=== PATIENT | female | born 1940 | race African-American/Black ===

== ENCOUNTER 2019-05-01 18:09 | Inpatient (IN) | payer MEDICARE, MEDICAID ==
[~2019-05-01] VITALS: Ht 167.6 cm; Wt 54.9 kg
[2019-05-01] MEDS ORDERED: SODIUM CHLORIDE 0.9% 1,000 ML IV ONE (19:01)
[2019-05-01 19:40] LABS: BASOPHILS % 0.2 % (0.0-2.0); EOSINOPHILS % 0.1 % (0.0-5.0); LYMPHOCYTES % 14.8 % (20.0-50.0); MEAN CORPUSCULAR HEMOGLOBIN 36.3 pg (28.0-32.0); MEAN CORPUSCULAR VOLUME 112.7 fL (81.0-99.0); MEAN PLATELET VOLUME 9.1 fl (7.4-10.4); MONOCYTES % 3.6 % (2.0-8.0); NEUTROPHILS % 81.3 % (40.0-76.0); PLATELET 101 x1000/uL (130-400); RED BLOOD CELL COUNT 2.75 mill/uL (4.2-5.4); RED CELL DISTRIBUTION WIDTH 18.2 % (11.6-14.6)
[2019-05-01 19:45] LABS: CHLORIDE 104 mEq/L (98-107)
[2019-05-01] MEDS ORDERED: IPRATROPIUM BROMIDE (0.02%) 0.5MG/2.5ML NEB HHN STA (19:54)
[2019-05-01] MEDS ORDERED: METHYLPREDNISOLONE SOD SUCC 125 MG/2 ML VIAL IV STA (19:54)
[2019-05-01] MEDS: ALBUTEROL (0.083%) 2.5MG/3ML NEB HHN SCH ×3 (20:02→21:11)
[2019-05-01] MEDS ORDERED: HALOPERIDOL LACTATE 5MG/ML VIAL IM ONE (20:15)
[2019-05-01] MEDS ORDERED: LORAZEPAM 2MG/ML CPJ IM ONE (21:15)
[2019-05-01 21:31] LABS: PLATELET ESTIMATE SLIGHTLY DECREASED
[2019-05-01] MEDS ORDERED: ALBUTEROL (0.083%) 2.5MG/3ML NEB HHN ONE (22:00)
[2019-05-01] MEDS ORDERED: ONDANSETRON HCL 4MG/2ML INJ IV PRN (23:45)
[2019-05-01] MEDS ORDERED: ACETAMINOPHEN 325MG TABLET PO PRN (23:45)
[2019-05-01] MEDS ORDERED: CLONIDINE 0.1MG TABLET PO PRN (23:45)
[2019-05-01] MEDS ORDERED: LORAZEPAM 2MG/ML CPJ IV PRN (23:45)
[2019-05-01 23:59] LABS: BG BASE EXCESS -7.2 mmol/L (-2.0-2.0); BG CARBOXYHEMOGLOBIN 0.3 % (0.5-1.5); BG DEOXYHEMOGLOBIN 5.5 % (0.0-5.0); BG FRACTION INSPIRED OXYGEN 36; BG HCO3 ACT 17.6 mmol/L (22.0-26.0); BG METHEMOGLOBIN 0.1 % (0.0-1.5); BG OXYGEN SATURATION 94.5 % (92.0-98.5); BG OXYHEMOGLOBIN 94.1 % (94.0-97.0); BG PCO2 32.6 mmHg (35.0-45.0); BG PH 7.349 (7.350-7.450); BG SAMPLE SITE RIGHT RADIAL; BG TOTAL HEMOGLOBIN 10.3 g/dL (12.0-18.0); BG VENT MODE NASAL CANNULA
[2019-05-02] VITALS (12 sets, daily range): BP systolic 93–134; BP diastolic 25–97
[2019-05-02] MEDS ORDERED: DEXT 5%/0.9% NACL 1,000 ML IV SCH
[2019-05-02] MEDS ORDERED: CLONIDINE 0.1MG TABLET PO PRN (02:00)
[2019-05-02] MEDS ORDERED: DEXTROSE 50% WATER 50ML SYRINGE IV PRN (02:00)
[2019-05-02] MEDS ORDERED: IPRATROPIUM/ALBUTEROL 0.5-3(2.5)MG/3ML NEB HHN PRN (02:00)
[2019-05-02] MEDS ORDERED: MAGNESIUM/ALUMINUM HYDROXIDE/SIMETHICONE 30ML UDC PO PRN (02:00)
[2019-05-02] MEDS: IPRATROPIUM/ALBUTEROL 0.5-3(2.5)MG/3ML NEB HHN SCH ×4 (02:12→21:18)
[2019-05-02] MEDS: SODIUM CHLORIDE 0.9% INJ 3ML FLUSH IVF SCH ×3 (05:35→21:28)
[2019-05-02] MEDS: BLOOD SUGAR DIAGNOSTIC STRIP TEST SCH ×4 (07:30→21:15)
[2019-05-02] MEDS: INSULIN LISPRO 100 UNITS/ML SUBCUT SCH ×4 (08:00→21:00)
[2019-05-02] MEDS: CARVEDILOL 12.5MG TABLET PO SCH ×2 (08:19→21:15)
[2019-05-02] MEDS ORDERED: FUROSEMIDE 40MG/4ML VIAL IVP SCH (09:00)
[2019-05-02] MEDS: BUDESONIDE 0.5MG/2ML NEB HHN SCH ×2 (09:23→21:00)
[2019-05-02] MEDS ORDERED: LORAZEPAM 0.5MG TABLET PO PRN (12:45)
[2019-05-02] MEDS ORDERED: PREDNISONE 20MG TABLET PO SCH (14:15)
[2019-05-02] MEDS: ATORVASTATIN CALCIUM 20MG TABLET PO SCH (21:13)
[2019-05-02] MEDS: LORAZEPAM 1MG TABLET PO PRN (21:13)
[2019-05-03] VITALS (12 sets, daily range): BP systolic 117–148; BP diastolic 53–102
[2019-05-03 01:18] LABS: *BARBITURATES SCREEN URINE NEGATIVE (NEGATIVE); *BENZODIAZEPINES SCREEN URINE NEGATIVE (NEGATIVE)
[2019-05-03 01:19] LABS: *COCAINE SCREEN URINE NEGATIVE (NEGATIVE); CANNABINOID URINE SCREEN NEGATIVE (NEGATIVE); METHADONE URINE SCREEN NEGATIVE (NEGATIVE); OPIATES URINE SCREEN NEGATIVE (NEGATIVE); PHENCYCLIDINE URINE SCREEN NEGATIVE (NEGATIVE)
[2019-05-03 01:20] LABS: *AMPHETAMINES SCREEN URINE NEGATIVE (NEGATIVE)
[2019-05-03] MEDS: IPRATROPIUM/ALBUTEROL 0.5-3(2.5)MG/3ML NEB HHN SCH ×4 (02:20→21:00)
[2019-05-03] MEDS: LORAZEPAM 1MG TABLET PO PRN ×3 (04:01→21:26)
[2019-05-03] MEDS: SODIUM CHLORIDE 0.9% INJ 3ML FLUSH IVF SCH ×3 (06:00→21:27)
[2019-05-03] MEDS: BLOOD SUGAR DIAGNOSTIC STRIP TEST SCH ×4 (07:57→21:00)
[2019-05-03] MEDS: INSULIN LISPRO 100 UNITS/ML SUBCUT SCH ×4 (07:57→21:00)
[2019-05-03] MEDS: CARVEDILOL 12.5MG TABLET PO SCH ×2 (08:04→21:26)
[2019-05-03] MEDS: FUROSEMIDE 40MG TABLET PO SCH (08:04)
[2019-05-03] MEDS: HALOPERIDOL 5MG TABLET PO PRN (08:04)
[2019-05-03] MEDS: BUDESONIDE 0.5MG/2ML NEB HHN SCH ×2 (08:09→21:17)
[2019-05-03 17:16] LABS: BG CARBOXYHEMOGLOBIN 0.4 % (0.5-1.5); BG DEOXYHEMOGLOBIN 4.6 % (0.0-5.0); BG FRACTION INSPIRED OXYGEN 28; BG HCO3 ACT 24.2 mmol/L (22.0-26.0); BG METHEMOGLOBIN 0.3 % (0.0-1.5); BG OXYGEN SATURATION 95.4 % (92.0-98.5); BG OXYHEMOGLOBIN 94.7 % (94.0-97.0); BG PCO2 37.6 mmHg (35.0-45.0); BG PH 7.427 (7.350-7.450); BG PO2 81.9 mmHg (75.0-100.0); BG SAMPLE SITE RIGHT BRACHIAL; BG TOTAL HEMOGLOBIN 9.8 g/dL (12.0-18.0); BG VENT MODE NASAL CANNULA
[2019-05-03] MEDS ORDERED: LORAZEPAM 2MG/ML CPJ IV PRN (17:30)
[2019-05-03] MEDS: DEXT 5%/0.9% NACL 1,000 ML IV SCH (17:50)
[2019-05-03] MEDS: ATORVASTATIN CALCIUM 20MG TABLET PO SCH (21:26)
[2019-05-04] VITALS (12 sets, daily range): BP systolic 99–143; BP diastolic 51–95
[2019-05-04] MEDS: IPRATROPIUM/ALBUTEROL 0.5-3(2.5)MG/3ML NEB HHN SCH ×5 (00:35→21:25)
[2019-05-04] MEDS: LORAZEPAM 2MG/ML CPJ IM PRN ×2 (04:17→17:21)
[2019-05-04] MEDS: SODIUM CHLORIDE 0.9% INJ 3ML FLUSH IVF SCH ×3 (06:00→22:00)
[2019-05-04 06:05] LABS: PHOSPHORUS 3.8 mg/dL (2.5-4.9)
[2019-05-04 06:12] LABS: HEMOGLOBIN. 10.5 g/dL (12.0-16.0); MEAN CORPUSCULAR HEMOGLOBIN 36.4 pg (28.0-32.0); MEAN CORPUSCULAR VOLUME 114.1 fL (81.0-99.0); MEAN PLATELET VOLUME 9.9 fl (7.4-10.4); PLATELET 65 x1000/uL (130-400); RED BLOOD CELL COUNT 2.89 mill/uL (4.2-5.4); RED CELL DISTRIBUTION WIDTH 18.2 % (11.6-14.6)
[2019-05-04] MEDS: INSULIN LISPRO 100 UNITS/ML SUBCUT SCH ×4 (07:43→21:00)
[2019-05-04] MEDS: BLOOD SUGAR DIAGNOSTIC STRIP TEST SCH ×4 (07:43→21:00)
[2019-05-04] MEDS: BUDESONIDE 0.5MG/2ML NEB HHN SCH (08:10)
[2019-05-04] MEDS: CARVEDILOL 12.5MG TABLET PO SCH ×2 (08:20→22:02)
[2019-05-04] MEDS: FUROSEMIDE 40MG TABLET PO SCH (08:20)
[2019-05-04] MEDS: HALOPERIDOL 5MG TABLET PO PRN (08:20)
[2019-05-04] MEDS: OLANZAPINE 5MG TABLET PO SCH (08:20)
[2019-05-04] MEDS ORDERED: PREDNISONE 20MG TABLET PO SCH (09:00)
[2019-05-04 12:53] LABS: PLATELET ESTIMATE DECREASED
[2019-05-04] MEDS: DEXT 5%/0.9% NACL 1,000 ML IV SCH (13:23)
[2019-05-04 17:02] LABS: BG BASE EXCESS -0.9 mmol/L (-2.0-2.0); BG CARBOXYHEMOGLOBIN 0.5 % (0.5-1.5); BG FRACTION INSPIRED OXYGEN 21; BG HCO3 ACT 22.9 mmol/L (22.0-26.0); BG METHEMOGLOBIN 0.3 % (0.0-1.5); BG OXYGEN SATURATION 88.9 % (92.0-98.5); BG OXYHEMOGLOBIN 88.2 % (94.0-97.0); BG PH 7.434 (7.350-7.450); BG PO2 58.3 mmHg (75.0-100.0); BG SAMPLE SITE RIGHT BRACHIAL; BG TOTAL HEMOGLOBIN 10.9 g/dL (12.0-18.0); BG VENT MODE ROOM AIR
[2019-05-04] MEDS: ATORVASTATIN CALCIUM 20MG TABLET PO SCH (21:59)
[2019-05-04] MEDS: LORAZEPAM 1MG TABLET PO PRN (23:07)
[2019-05-05] VITALS (16 sets, daily range): BP systolic 90–134; BP diastolic 71–90
[2019-05-05] MEDS: LORAZEPAM 2MG/ML CPJ IM PRN (01:03)
[2019-05-05] MEDS: IPRATROPIUM/ALBUTEROL 0.5-3(2.5)MG/3ML NEB HHN SCH ×4 (01:50→20:42)
[2019-05-05] MEDS: ACETAMINOPHEN 325MG TABLET PO PRN (05:01)
[2019-05-05] MEDS: SODIUM CHLORIDE 0.9% INJ 3ML FLUSH IVF SCH ×3 (06:00→21:20)
[2019-05-05] MEDS: BLOOD SUGAR DIAGNOSTIC STRIP TEST SCH ×3 (07:30→21:19)
[2019-05-05] MEDS: INSULIN LISPRO 100 UNITS/ML SUBCUT SCH ×3 (08:00→21:00)
[2019-05-05] MEDS: FUROSEMIDE 40MG TABLET PO SCH ×3 (09:00→16:37)
[2019-05-05] MEDS: OLANZAPINE 5MG TABLET PO SCH ×3 (09:00→16:36)
[2019-05-05] MEDS: PREDNISONE 20MG TABLET NG SCH ×3 (09:00→16:36)
[2019-05-05] MEDS: CARVEDILOL 12.5MG TABLET PO SCH ×3 (09:00→21:00)
[2019-05-05] MEDS: DEXT 5%/0.9% NACL 1,000 ML IV SCH (09:30)
[2019-05-05] MEDS: BUDESONIDE 0.5MG/2ML NEB HHN SCH (20:43)
[2019-05-05] MEDS: ATORVASTATIN CALCIUM 20MG TABLET PO SCH (21:19)
[2019-05-06] VITALS (15 sets, daily range): BP systolic 113–134; BP diastolic 54–96
[2019-05-06] MEDS: IPRATROPIUM/ALBUTEROL 0.5-3(2.5)MG/3ML NEB HHN SCH ×4 (02:15→20:10)
[2019-05-06] MEDS: DEXT 5%/0.9% NACL 1,000 ML IV SCH (05:01)
[2019-05-06] MEDS: SODIUM CHLORIDE 0.9% INJ 3ML FLUSH IVF SCH ×3 (05:02→21:48)
[2019-05-06 07:05] LABS: HEMATOCRIT. 31.6 % (36.0-48.0); HEMOGLOBIN. 10.3 g/dL (12.0-16.0); MEAN CORPUSCULAR VOLUME 110.9 fL (81.0-99.0); MEAN PLATELET VOLUME 9.2 fl (7.4-10.4); PLATELET 66 x1000/uL (130-400); RED BLOOD CELL COUNT 2.85 mill/uL (4.2-5.4); RED CELL DISTRIBUTION WIDTH 17.9 % (11.6-14.6)
[2019-05-06 07:19] LABS: CHLORIDE 109 mEq/L (98-107)
[2019-05-06 07:30] LABS: PHOSPHORUS 3.2 mg/dL (2.5-4.9)
[2019-05-06] MEDS: INSULIN LISPRO 100 UNITS/ML SUBCUT SCH ×4 (08:00→21:00)
[2019-05-06] MEDS: BUDESONIDE 0.5MG/2ML NEB HHN SCH ×2 (08:24→20:10)
[2019-05-06] MEDS: OLANZAPINE 5MG TABLET PO SCH (08:25)
[2019-05-06] MEDS: FUROSEMIDE 40MG TABLET PO SCH (08:25)
[2019-05-06] MEDS: PREDNISONE 20MG TABLET NG SCH (08:26)
[2019-05-06] MEDS: CARVEDILOL 12.5MG TABLET PO SCH ×2 (08:26→21:47)
[2019-05-06] MEDS: BLOOD SUGAR DIAGNOSTIC STRIP TEST SCH ×4 (08:27→21:47)
[2019-05-06 12:41] LABS: PLATELET ESTIMATE DECREASED
[2019-05-06 17:54] LABS: INR 1.9; PROTHROMBIN TIME 19.4 sec (9.6-11.0)
[2019-05-06] MEDS: LORAZEPAM 1MG TABLET PO PRN (19:42)
[2019-05-06] MEDS: PANTOPRAZOLE SODIUM 40 MG/VIAL IV SCH (21:00)
[2019-05-06] MEDS: ATORVASTATIN CALCIUM 20MG TABLET PO SCH (21:47)
[2019-05-07] VITALS (15 sets, daily range): BP systolic 95–156; BP diastolic 39–99
[2019-05-07] MEDS: IPRATROPIUM/ALBUTEROL 0.5-3(2.5)MG/3ML NEB HHN SCH ×4 (01:00→21:06)
[2019-05-07] MEDS: DEXT 5%/0.9% NACL 1,000 ML IV SCH ×2 (04:25→21:12)
[2019-05-07] MEDS: SODIUM CHLORIDE 0.9% INJ 3ML FLUSH IVF SCH ×3 (05:51→21:12)
[2019-05-07 06:41] LABS: CHLORIDE 109 mEq/L (98-107); INR 2.1; PARTIAL THROMBOPLASTIN TIME 31.5 sec (23.4-31.0); PROTHROMBIN TIME 21.3 sec (9.6-11.0)
[2019-05-07 07:11] LABS: HEMOGLOBIN. 9.5 g/dL (12.0-16.0); MEAN CORPUSCULAR HEMOGLOBIN 35.8 pg (28.0-32.0); MEAN CORPUSCULAR VOLUME 117.2 fL (81.0-99.0); MEAN PLATELET VOLUME 9.1 fl (7.4-10.4); PLATELET 51 x1000/uL (130-400); RED BLOOD CELL COUNT 2.65 mill/uL (4.2-5.4)
[2019-05-07] MEDS: BLOOD SUGAR DIAGNOSTIC STRIP TEST SCH ×4 (07:30→20:50)
[2019-05-07] MEDS: BUDESONIDE 0.5MG/2ML NEB HHN SCH ×2 (07:54→21:07)
[2019-05-07] MEDS: INSULIN LISPRO 100 UNITS/ML SUBCUT SCH ×4 (08:00→20:58)
[2019-05-07] MEDS ORDERED: CEFAZOLIN 1000MG PREMIX 50 ML IV NR (09:00)
[2019-05-07] MEDS: CARVEDILOL 12.5MG TABLET PO SCH ×2 (09:00→21:00)
[2019-05-07] MEDS: PREDNISONE 20MG TABLET NG SCH (09:00)
[2019-05-07] MEDS: OLANZAPINE 5MG TABLET PO SCH (09:00)
[2019-05-07] MEDS: FUROSEMIDE 40MG TABLET PO SCH (09:00)
[2019-05-07] MEDS: PANTOPRAZOLE SODIUM 40 MG/VIAL IV SCH ×2 (09:01→20:49)
[2019-05-07 09:14] LABS: PLATELET ESTIMATE MARKEDLY DECREASED
[2019-05-07] MEDS ORDERED: LIDOCAINE HCL 1% 20ML VIAL (Pyxis) INJ ONE (13:56)
[2019-05-07 17:43] LABS: PROTHROMBIN TIME 19.7 sec (9.6-11.0)
[2019-05-07] MEDS: ATORVASTATIN CALCIUM 20MG TABLET PO SCH (20:49)
[2019-05-08] VITALS (31 sets, daily range): BP systolic 84–137; BP diastolic 39–99
[2019-05-08] MEDS: IPRATROPIUM/ALBUTEROL 0.5-3(2.5)MG/3ML NEB HHN SCH ×4 (01:17→20:52)
[2019-05-08] MEDS: DIPHENHYDRAMINE 50MG/ML VIAL IV PRN ×2 (01:48→19:51)
[2019-05-08] MEDS: SODIUM CHLORIDE 0.9% INJ 3ML FLUSH IVF SCH ×3 (06:37→23:31)
[2019-05-08] MEDS: DEXT 5%/0.9% NACL 1,000 ML IV SCH (08:00)
[2019-05-08] MEDS: INSULIN LISPRO 100 UNITS/ML SUBCUT SCH ×4 (08:00→21:00)
[2019-05-08] MEDS: BUDESONIDE 0.5MG/2ML NEB HHN SCH (08:53)
[2019-05-08] MEDS: CARVEDILOL 12.5MG TABLET PO SCH ×2 (09:00→20:26)
[2019-05-08] MEDS: BLOOD SUGAR DIAGNOSTIC STRIP TEST SCH ×4 (09:00→21:00)
[2019-05-08] MEDS: OLANZAPINE 5MG TABLET PO SCH (09:00)
[2019-05-08] MEDS: PREDNISONE 20MG TABLET NG SCH (10:01)
[2019-05-08] MEDS: FUROSEMIDE 40MG TABLET PO SCH (10:02)
[2019-05-08] MEDS ORDERED: PHYTONADIONE 10MG/ML AMP SUBCUT SCH (10:45)
[2019-05-08] MEDS ORDERED: BISACODYL 10MG SUPP PR NR (12:00)
[2019-05-08] MEDS: ATORVASTATIN CALCIUM 20MG TABLET PO SCH (20:27)
[2019-05-08] MEDS: LORAZEPAM 2MG/ML CPJ IM PRN (20:35)
[2019-05-09] VITALS (23 sets, daily range): BP systolic 84–124; BP diastolic 15–92
[2019-05-09 00:23] LABS: INR 1.6; PROTHROMBIN TIME 16.1 sec (9.6-11.0)
[2019-05-09] MEDS: IPRATROPIUM/ALBUTEROL 0.5-3(2.5)MG/3ML NEB HHN SCH ×4 (04:22→20:06)
[2019-05-09] MEDS: SODIUM CHLORIDE 0.9% INJ 3ML FLUSH IVF SCH ×3 (05:31→21:32)
[2019-05-09] MEDS: BLOOD SUGAR DIAGNOSTIC STRIP TEST SCH ×4 (07:30→21:00)
[2019-05-09] MEDS: INSULIN LISPRO 100 UNITS/ML SUBCUT SCH ×4 (07:52→21:00)
[2019-05-09] MEDS: FUROSEMIDE 40MG TABLET PO SCH (09:00)
[2019-05-09] MEDS: CARVEDILOL 12.5MG TABLET PO SCH ×2 (09:00→21:31)
[2019-05-09] MEDS: PREDNISONE 20MG TABLET NG SCH (09:00)
[2019-05-09] MEDS: OLANZAPINE 5MG TABLET PO SCH (09:00)
[2019-05-09] MEDS ORDERED: MIDAZOLAM HCL 5 MG/5 ML VIAL ONE (11:42)
[2019-05-09] MEDS ORDERED: FENTANYL CITRATE/PF 50MCG/ML 2ML VIAL ONE (11:42)
[2019-05-09] MEDS ORDERED: CEFAZOLIN 1000MG PREMIX 50 ML IV ONE ×2 (12:01→12:45)
[2019-05-09] MEDS: DEXT 5%/0.9% NACL 1,000 ML IV SCH (13:30)
[2019-05-09 14:38] LABS: HEMATOCRIT 27.1 % (36.0-48.0); HEMOGLOBIN 8.7 g/dL (12.0-16.0); MEAN CORPUSCULAR HEMOGLOBIN 35.7 pg (28.0-32.0); MEAN CORPUSCULAR VOLUME 111.4 fL (81.0-99.0); RED BLOOD CELL COUNT 2.43 mill/uL (4.2-5.4); RED CELL DISTRIBUTION WIDTH 18.1 % (11.6-14.6)
[2019-05-09 14:46] LABS: CHLORIDE 113 mEq/L (98-107)
[2019-05-09 14:49] LABS: INR 1.9; PARTIAL THROMBOPLASTIN TIME 29.8 sec (23.4-31.0)
[2019-05-09 15:12] LABS: HEPATITIS B SURFACE ANTIGEN NEGATIVE
[2019-05-09 15:42] LABS: HEPATITIS A AB IGM NEGATIVE (NEGATIVE)
[2019-05-09] MEDS ORDERED: POTASSIUM CHLORIDE 20MEQ/PACKET PO NR (17:45)
[2019-05-09] MEDS: POTASSIUM CHLORIDE 20MEQ/PACKET PO SCH (18:19)
[2019-05-09] MEDS: ACETAMINOPHEN 325MG TABLET PO PRN (21:09)
[2019-05-09] MEDS: ONDANSETRON HCL 4MG/2ML INJ IV PRN (21:09)
[2019-05-09] MEDS: ATORVASTATIN CALCIUM 20MG TABLET PO SCH (21:09)
[2019-05-10] VITALS (12 sets, daily range): BP systolic 76–145; BP diastolic 51–77
[2019-05-10] MEDS: IPRATROPIUM/ALBUTEROL 0.5-3(2.5)MG/3ML NEB HHN SCH ×3 (02:44→16:53)
[2019-05-10] MEDS: ONDANSETRON HCL 4MG/2ML INJ IV PRN (05:29)
[2019-05-10] MEDS: SODIUM CHLORIDE 0.9% INJ 3ML FLUSH IVF SCH ×2 (05:29→13:06)
[2019-05-10] MEDS: INSULIN LISPRO 100 UNITS/ML SUBCUT SCH ×3 (08:00→18:00)
[2019-05-10] MEDS: BLOOD SUGAR DIAGNOSTIC STRIP TEST SCH ×3 (08:02→16:48)
[2019-05-10] MEDS: CARVEDILOL 12.5MG TABLET PO SCH (09:00)
[2019-05-10] MEDS: PREDNISONE 20MG TABLET NG SCH (09:21)
[2019-05-10] MEDS: POTASSIUM CHLORIDE 20MEQ/PACKET PO SCH (09:21)
[2019-05-10] MEDS: OLANZAPINE 5MG TABLET PO SCH (09:21)
[2019-05-10] MEDS: FUROSEMIDE 40MG TABLET PO SCH (09:21)
[2019-05-10] MEDS: DEXT 5%/0.9% NACL 1,000 ML IV SCH (09:23)
[2019-05-10] MEDS: ACETAMINOPHEN 325MG TABLET PO PRN (09:29)
[2019-05-10] MEDS: THIAMINE HCL 100MG TABLET PO SCH ×2 (10:58→16:48)
[2019-05-10] MEDS ORDERED: FOLIC ACID 1MG TABLET PO SCH (11:00)
[2019-05-11 10:21] LABS: PLATELET 41 x1000/uL (130-400)
== END 2019-05-10 18:57 | DRG 660 ==
LOC: ER 18:09 → 5EST 22:04 → EDBEDREQTM 22:06 → EDBEDREQ 22:06 → ENRESERV 22:12
PROVIDERS: ADMIT Internal Medicine; ATTEND Internal Medicine
PROC: 02HV33Z Insertion of Infusion Device into Superior Vena Cava, Percutaneous Approach (ICD-10-PCS; 2019-05-07)
PROC: B548ZZA Ultrasonography of Superior Vena Cava, Guidance (ICD-10-PCS; 2019-05-07)
PROC: 30233K1 Transfusion of Nonautologous Frozen Plasma into Peripheral Vein, Percutaneous Approach (ICD-10-PCS; principal; 2019-05-08)
PROC: 0DH63UZ Insertion of Feeding Device into Stomach, Percutaneous Approach (ICD-10-PCS; 2019-05-09)
DX: D61.818 Other pancytopenia (principal); J96.00 Acute respiratory failure, unspecified whether with hypoxia or hypercapnia; G92 Toxic encephalopathy; I50.23 Acute on chronic systolic (congestive) heart failure; E46 Unspecified protein-calorie malnutrition; I85.10 Secondary esophageal varices without bleeding; K74.60 Unspecified cirrhosis of liver; K76.6 Portal hypertension; E87.2 Acidosis; D68.4 Acquired coagulation factor deficiency; E87.1 Hypo-osmolality and hyponatremia; J44.1 Chronic obstructive pulmonary disease with (acute) exacerbation; I11.0 Hypertensive heart disease with heart failure; D50.9 Iron deficiency anemia, unspecified; E11.9 Type 2 diabetes mellitus without complications; B19.20 Unspecified viral hepatitis C without hepatic coma; F03.90 Unspecified dementia, unspecified severity, without behavioral disturbance, psychotic disturbance, mood disturbance, and anxiety; I42.9 Cardiomyopathy, unspecified; J38.5 Laryngeal spasm; K44.9 Diaphragmatic hernia without obstruction or gangrene; K31.89 Other diseases of stomach and duodenum; R13.12 Dysphagia, oropharyngeal phase; R62.7 Adult failure to thrive; Z86.73 Personal history of transient ischemic attack (TIA), and cerebral infarction without residual deficits; Z79.899 Other long term (current) drug therapy; Z68.1 Body mass index [BMI] 19.9 or less, adult
CPT/HCPCS: 36415; 36600; 71045; 74018; 76705; 76937; 80048; 80305; 82105; 82140; 82375; 82805; 82962; 83036; 83735; 83880; 84100; 84443; 84484; 85027; 86705; 86709; 86803; 86850; 86900; 86927; 87340; 93005; 93306; 93970; 94640; 96372; 99285; A6261; C1725; C1893; C9113; J0690; J1200; J1630; J1815; J1940; J2060; J2250; J2405; J2930; J3010; J3430; J3490; J7030; J7042; J7512; J7611; J7620; J7626; P9017

== ENCOUNTER 2019-05-10 20:03 | Inpatient (IN) | payer MEDICARE, MEDICAID ==
[~2019-05-10] VITALS: Ht 160 cm; Wt 53.5 kg
[2019-05-10 21:46] LABS: BG BASE EXCESS 1.8 mmol/L (-2.0-2.0); BG CARBOXYHEMOGLOBIN 0.8 % (0.5-1.5); BG DEOXYHEMOGLOBIN 1.4 % (0.0-5.0); BG FRACTION INSPIRED OXYGEN 32; BG HCO3 ACT 27.4 mmol/L (22.0-26.0); BG METHEMOGLOBIN 0.3 % (0.0-1.5); BG OXYGEN SATURATION 98.6 % (92.0-98.5); BG OXYHEMOGLOBIN 97.5 % (94.0-97.0); BG PCO2 47.3 mmHg (35.0-45.0); BG PH 7.381 (7.350-7.450); BG PO2 136.5 mmHg (75.0-100.0); BG SAMPLE SITE LEFT BRACHIAL; BG TOTAL HEMOGLOBIN 10.8 g/dL (12.0-18.0); BG VENT MODE NASAL CANNULA
[2019-05-11] MEDS ORDERED: SODIUM CHLORIDE 0.9% 1,000 ML IV ONE (00:10)
[2019-05-11] MEDS ORDERED: ALBUTEROL (0.083%) 2.5MG/3ML NEB HHN STA (00:10)
[2019-05-11] MEDS ORDERED: IPRATROPIUM BROMIDE (0.02%) 0.5MG/2.5ML NEB HHN STA (00:10)
[2019-05-11] MEDS ORDERED: METHYLPREDNISOLONE SOD SUCC 125 MG/2 ML VIAL IV STA (00:10)
[2019-05-11] MEDS ORDERED: CLONIDINE 0.1MG TABLET GT PRN (00:30)
[2019-05-11] MEDS ORDERED: GUAIFENESIN 200MG/10ML SUGAR FREE UDC GT PRN (00:30)
[2019-05-11] MEDS ORDERED: IPRATROPIUM/ALBUTEROL 0.5-3(2.5)MG/3ML NEB HHN PRN (00:30)
[2019-05-11] MEDS ORDERED: ACETAMINOPHEN 650MG/20.3ML UDC GT PRN (00:30)
[2019-05-11] MEDS ORDERED: DIPHENHYDRAMINE 50MG/ML VIAL IV PRN (00:30)
[2019-05-11] MEDS ORDERED: MAGNESIUM/ALUMINUM HYDROXIDE/SIMETHICONE 30ML UDC GT PRN (00:30)
[2019-05-11] MEDS ORDERED: ONDANSETRON HCL 4MG/2ML INJ IV PRN (00:30)
[2019-05-11 00:35] LABS: HEMATOCRIT. 35.5 % (36.0-48.0); HEMOGLOBIN. 10.7 g/dL (12.0-16.0); MEAN CORPUSCULAR HEMOGLOBIN 35.3 pg (28.0-32.0); MEAN CORPUSCULAR VOLUME 117.6 fL (81.0-99.0); MEAN PLATELET VOLUME 10.5 fl (7.4-10.4); RED BLOOD CELL COUNT 3.02 mill/uL (4.2-5.4); RED CELL DISTRIBUTION WIDTH 19.1 % (11.6-14.6)
[2019-05-11 00:37] LABS: PLATELET 50 x1000/uL (130-400)
[2019-05-11] MEDS ORDERED: DIGOXIN 500MCG/2ML AMP IV NR (01:30)
[2019-05-11] MEDS ORDERED: CARVEDILOL 12.5MG TABLET PO SCH (01:30)
[2019-05-11] MEDS ORDERED: HALOPERIDOL LACTATE 5MG/ML VIAL IM NR (01:45)
[2019-05-11 01:54] LABS: PLATELET ESTIMATE DECREASED
[2019-05-11] MEDS: DEXT 5%/0.2% NACL 1,000 ML IV SCH (04:41)
[2019-05-11 04:46] LABS: HEMATOCRIT. 33.9 % (36.0-48.0); MEAN CORPUSCULAR HEMOGLOBIN 35.6 pg (28.0-32.0); MEAN CORPUSCULAR VOLUME 120.6 fL (81.0-99.0); MEAN PLATELET VOLUME 10.3 fl (7.4-10.4); RED BLOOD CELL COUNT 2.81 mill/uL (4.2-5.4); RED CELL DISTRIBUTION WIDTH 18.7 % (11.6-14.6)
[2019-05-11 04:53] LABS: PLATELET 41 x1000/uL (130-400)
[2019-05-11 04:56] LABS: CHLORIDE 116 mEq/L (98-107)
[2019-05-11] MEDS ORDERED: DEXTROSE 50% WATER 50ML SYRINGE IV ONE ×2 (05:21→05:30)
[2019-05-11 06:41] LABS: PLATELET ESTIMATE MARKEDLY DECREASED
[2019-05-11] MEDS: CARVEDILOL 12.5MG TABLET PO SCH ×2 (09:00→21:07)
[2019-05-11] MEDS: LORAZEPAM 2MG/ML CPJ IV PRN ×2 (09:05→17:30)
[2019-05-11 09:30] VITALS: BP 113/71
[2019-05-11] MEDS: OLANZAPINE 5MG TABLET GT SCH (10:34)
[2019-05-11 12:00] VITALS: BP 129/89
[2019-05-11 16:00] VITALS: BP 103/73
[2019-05-11] MEDS: DIGOXIN 500MCG/2ML AMP IV SCH (17:31)
[2019-05-11 20:40] VITALS: BP 97/66
[2019-05-11] MEDS: AMIODARONE HCL 200 MG TABLET PO SCH (21:07)
[2019-05-11] MEDS: FAMOTIDINE 20MG TABLET GT SCH (21:07)
[2019-05-11] MEDS: BUDESONIDE 0.5MG/2ML NEB HHN SCH (21:17)
[2019-05-11] MEDS: IPRATROPIUM/ALBUTEROL 0.5-3(2.5)MG/3ML NEB HHN SCH (21:18)
[2019-05-12 00:47] VITALS: BP 104/72
[2019-05-12] MEDS: DEXT 5%/0.2% NACL 1,000 ML IV SCH ×2 (02:31→21:14)
[2019-05-12] MEDS: IPRATROPIUM/ALBUTEROL 0.5-3(2.5)MG/3ML NEB HHN SCH ×3 (02:56→20:41)
[2019-05-12 04:00] VITALS: BP 102/68
[2019-05-12] MEDS: INSULIN LISPRO 100 UNITS/ML SUBCUT SCH ×3 (06:00→18:00)
[2019-05-12] MEDS: AMIODARONE HCL 200 MG TABLET PO SCH ×2 (06:49→18:23)
[2019-05-12] MEDS: BLOOD SUGAR DIAGNOSTIC STRIP TEST SCH ×3 (06:49→18:24)
[2019-05-12 08:00] VITALS: BP 110/76
[2019-05-12] MEDS: CARVEDILOL 12.5MG TABLET PO SCH ×2 (09:00→21:15)
[2019-05-12] MEDS: OLANZAPINE 5MG TABLET GT SCH (09:37)
[2019-05-12 12:00] VITALS: BP 110/73
[2019-05-12 16:00] VITALS: BP 132/78
[2019-05-12 18:03] LABS: INR 1.7; PARTIAL THROMBOPLASTIN TIME 32.7 sec (23.4-31.0); PROTHROMBIN TIME 17.1 sec (9.6-11.0)
[2019-05-12] MEDS: DIGOXIN 500MCG/2ML AMP IV SCH (18:23)
[2019-05-12 20:14] VITALS: BP 118/79
[2019-05-12] MEDS: BUDESONIDE 0.5MG/2ML NEB HHN SCH (20:41)
[2019-05-12] MEDS: FAMOTIDINE 20MG TABLET GT SCH (21:14)
[2019-05-13] MEDS: BLOOD SUGAR DIAGNOSTIC STRIP TEST SCH ×4 (00:16→18:08)
[2019-05-13 00:28] VITALS: BP 114/76
[2019-05-13] MEDS: IPRATROPIUM/ALBUTEROL 0.5-3(2.5)MG/3ML NEB HHN SCH ×4 (02:22→20:55)
[2019-05-13 04:00] VITALS: BP 115/75
[2019-05-13] MEDS: AMIODARONE HCL 200 MG TABLET PO SCH ×3 (05:38→14:10)
[2019-05-13] MEDS: INSULIN LISPRO 100 UNITS/ML SUBCUT SCH ×4 (05:54→18:00)
[2019-05-13 08:00] VITALS: BP 90/63
[2019-05-13] MEDS: BUDESONIDE 0.5MG/2ML NEB HHN SCH ×2 (08:00→20:56)
[2019-05-13] MEDS: CARVEDILOL 12.5MG TABLET PO SCH (09:00)
[2019-05-13 09:55] LABS: HEMATOCRIT. 32.2 % (36.0-48.0); HEMOGLOBIN. 10.3 g/dL (12.0-16.0); MEAN PLATELET VOLUME 10.7 fl (7.4-10.4); RED BLOOD CELL COUNT 2.85 mill/uL (4.2-5.4); RED CELL DISTRIBUTION WIDTH 18.5 % (11.6-14.6)
[2019-05-13 10:07] LABS: MEAN CORPUSCULAR VOLUME 112.8 fL (81.0-99.0)
[2019-05-13 10:09] LABS: PLATELET 41 x1000/uL (130-400)
[2019-05-13 10:56] LABS: NUCLEATED RED BLOOD CELLS 1 /100 WBC
[2019-05-13 11:00] LABS: PLATELET ESTIMATE MARKEDLY DECREASED
[2019-05-13 12:00] VITALS: BP 126/80
[2019-05-13] MEDS: HALOPERIDOL LACTATE 5MG/ML VIAL IM PRN (12:24)
[2019-05-13] MEDS: OLANZAPINE 5MG TABLET GT SCH (14:10)
[2019-05-13] MEDS: LACTULOSE 20G/30ML UDC PO SCH ×2 (14:14→21:02)
[2019-05-13 16:00] VITALS: BP 129/83
[2019-05-13] MEDS: DEXT 5%/0.2% NACL 1,000 ML IV SCH (18:12)
[2019-05-13 20:22] VITALS: BP 95/59
[2019-05-13] MEDS: CARVEDILOL 6.25 MG TABLET PO SCH (20:26)
[2019-05-13] MEDS: FAMOTIDINE 20MG TABLET GT SCH (21:03)
[2019-05-14 00:01] VITALS: BP 122/81
[2019-05-14] MEDS: IPRATROPIUM/ALBUTEROL 0.5-3(2.5)MG/3ML NEB HHN SCH ×4 (01:35→21:47)
[2019-05-14 04:26] VITALS: BP 128/79
[2019-05-14] MEDS: LACTULOSE 20G/30ML UDC PO SCH ×3 (05:38→22:33)
[2019-05-14] MEDS: BLOOD SUGAR DIAGNOSTIC STRIP TEST SCH ×4 (05:38→17:15)
[2019-05-14] MEDS: INSULIN LISPRO 100 UNITS/ML SUBCUT SCH ×4 (06:00→17:15)
[2019-05-14 06:37] LABS: HEMATOCRIT. 30.9 % (36.0-48.0); MEAN CORPUSCULAR VOLUME 111.6 fL (81.0-99.0); MEAN PLATELET VOLUME 9.6 fl (7.4-10.4); PLATELET 70 x1000/uL (130-400); RED BLOOD CELL COUNT 2.77 mill/uL (4.2-5.4); RED CELL DISTRIBUTION WIDTH 17.9 % (11.6-14.6)
[2019-05-14 08:00] VITALS: BP 128/82
[2019-05-14 08:18] LABS: CHLORIDE 111 mEq/L (98-107)
[2019-05-14 08:42] LABS: PLATELET ESTIMATE DECREASED
[2019-05-14] MEDS: CARVEDILOL 6.25 MG TABLET PO SCH ×2 (08:56→22:35)
[2019-05-14] MEDS: AMIODARONE HCL 200 MG TABLET PO SCH (08:56)
[2019-05-14] MEDS: OLANZAPINE 5MG TABLET GT SCH (08:57)
[2019-05-14] MEDS: LORAZEPAM 2MG/ML CPJ IV PRN (09:41)
[2019-05-14] MEDS ORDERED: SODIUM BICARBONATE 4% (2.4MEQ) 5ML VIAL IV ONE (10:13)
[2019-05-14] MEDS ORDERED: LIDOCAINE HCL 1% 20ML VIAL (Pyxis) INJ ONE (10:13)
[2019-05-14 12:00] VITALS: BP 108/68
[2019-05-14] MEDS: DEXTROSE 50% WATER 50ML SYRINGE IV PRN ×2 (12:05→17:28)
[2019-05-14] MEDS: BUDESONIDE 0.5MG/2ML NEB HHN SCH ×2 (12:31→21:46)
[2019-05-14] MEDS: DEXT 5%/0.2% NACL 1,000 ML IV SCH (13:46)
[2019-05-14 20:00] VITALS: BP 124/72
[2019-05-14] MEDS ORDERED: BUDESONIDE 0.5MG/2ML NEB ONE (21:26)
[2019-05-14] MEDS: FAMOTIDINE 20MG TABLET GT SCH (22:33)
[2019-05-15] VITALS: BP 107/60
[2019-05-15] MEDS: LORAZEPAM 2MG/ML CPJ IV PRN (00:14)
[2019-05-15] MEDS: IPRATROPIUM/ALBUTEROL 0.5-3(2.5)MG/3ML NEB HHN SCH ×4 (00:39→21:11)
[2019-05-15 04:00] VITALS: BP 106/70
[2019-05-15] MEDS: LACTULOSE 20G/30ML UDC PO SCH ×3 (05:40→21:58)
[2019-05-15] MEDS: BLOOD SUGAR DIAGNOSTIC STRIP TEST SCH ×4 (05:40→18:07)
[2019-05-15] MEDS: INSULIN LISPRO 100 UNITS/ML SUBCUT SCH ×4 (05:47→18:00)
[2019-05-15 08:00] VITALS: BP 122/71
[2019-05-15] MEDS: CARVEDILOL 6.25 MG TABLET PO SCH ×2 (08:20→21:59)
[2019-05-15] MEDS: DEXT 5%/0.2% NACL 1,000 ML IV SCH (08:20)
[2019-05-15] MEDS: AMIODARONE HCL 200 MG TABLET PO SCH (08:20)
[2019-05-15] MEDS: OLANZAPINE 5MG TABLET GT SCH (08:20)
[2019-05-15] MEDS ORDERED: CEFTRIAXONE 2 GM IV SCH (11:30)
[2019-05-15 12:00] VITALS: BP 93/59
[2019-05-15] MEDS: CEFTRIAXONE 2 G in DEXTROSE 5% WATER 50 ML IV SCH (13:38)
[2019-05-15 16:00] VITALS: BP 108/75
[2019-05-15] MEDS: PHYTONADIONE 10MG/ML AMP SUBCUT SCH (17:16)
[2019-05-15 20:00] VITALS: BP 134/70
[2019-05-15] MEDS: FAMOTIDINE 20MG TABLET GT SCH (22:02)
[2019-05-15] MEDS: HALOPERIDOL LACTATE 5MG/ML VIAL IM PRN (22:03)
[2019-05-16] VITALS: BP 146/77
[2019-05-16 01:23] LABS: FERRITIN 103 ng/mL (10-291)
[2019-05-16 01:27] LABS: FOLIC ACID (FOLATE) SERUM > 20.00 ng/mL (>5.38)
[2019-05-16 01:38] LABS: VITAMIN B12 SERUM 1504 pg/mL (211-911)
[2019-05-16] MEDS: IPRATROPIUM/ALBUTEROL 0.5-3(2.5)MG/3ML NEB HHN SCH ×4 (02:27→20:39)
[2019-05-16 04:00] VITALS: BP 113/75
[2019-05-16] MEDS: DEXT 5%/0.2% NACL 1,000 ML IV SCH (05:00)
[2019-05-16] MEDS: INSULIN LISPRO 100 UNITS/ML SUBCUT SCH ×4 (06:00→18:00)
[2019-05-16] MEDS: BLOOD SUGAR DIAGNOSTIC STRIP TEST SCH ×5 (06:09→23:54)
[2019-05-16] MEDS: LACTULOSE 20G/30ML UDC PO SCH ×2 (06:42→18:53)
[2019-05-16 08:00] VITALS: BP 133/77
[2019-05-16] MEDS: AMIODARONE HCL 200 MG TABLET PO SCH (09:01)
[2019-05-16] MEDS: OLANZAPINE 5MG TABLET GT SCH ×2 (09:01→23:44)
[2019-05-16] MEDS: CARVEDILOL 6.25 MG TABLET PO SCH ×2 (09:02→22:25)
[2019-05-16] MEDS: PHYTONADIONE 10MG/ML AMP SUBCUT SCH (09:03)
[2019-05-16 12:00] VITALS: BP 102/64
[2019-05-16] MEDS: CEFTRIAXONE 2 G in DEXTROSE 5% WATER 50 ML IV SCH (12:54)
[2019-05-16 16:00] VITALS: BP 129/88
[2019-05-16] MEDS: HALOPERIDOL LACTATE 5MG/ML VIAL IM PRN (16:53)
[2019-05-16 17:00] LABS: CHLORIDE 112 mEq/L (98-107)
[2019-05-16 17:11] LABS: HEMATOCRIT. 30.2 % (36.0-48.0); HEMOGLOBIN. 9.4 g/dL (12.0-16.0); MEAN CORPUSCULAR HEMOGLOBIN 35.3 pg (28.0-32.0); MEAN CORPUSCULAR VOLUME 113.3 fL (81.0-99.0); MEAN PLATELET VOLUME 11.4 fl (7.4-10.4); RED BLOOD CELL COUNT 2.67 mill/uL (4.2-5.4); RED CELL DISTRIBUTION WIDTH 18.5 % (11.6-14.6)
[2019-05-16 17:31] LABS: PLATELET 49 x1000/uL (130-400)
[2019-05-16] MEDS: FAMOTIDINE 20MG TABLET GT SCH (21:54)
[2019-05-17] MEDS: IPRATROPIUM/ALBUTEROL 0.5-3(2.5)MG/3ML NEB HHN SCH ×3 (02:05→13:32)
[2019-05-17] MEDS: DEXT 5%/0.2% NACL 1,000 ML IV SCH (02:19)
[2019-05-17 04:00] VITALS: BP 99/56
[2019-05-17] MEDS: HALOPERIDOL LACTATE 5MG/ML VIAL IM PRN (05:10)
[2019-05-17] MEDS: INSULIN LISPRO 100 UNITS/ML SUBCUT SCH ×4 (06:00→17:59)
[2019-05-17] MEDS: BLOOD SUGAR DIAGNOSTIC STRIP TEST SCH ×3 (06:00→17:59)
[2019-05-17 07:05] LABS: PLATELET ESTIMATE MARKEDLY DECREASED
[2019-05-17] MEDS: LACTULOSE 20G/30ML UDC PO SCH ×2 (07:05→18:00)
[2019-05-17 08:00] VITALS: BP 91/54
[2019-05-17] MEDS: CARVEDILOL 6.25 MG TABLET PO SCH (09:00)
[2019-05-17] MEDS: OLANZAPINE 5MG TABLET GT SCH ×2 (09:37→17:00)
[2019-05-17] MEDS: AMIODARONE HCL 200 MG TABLET PO SCH (09:37)
[2019-05-17] MEDS: PHYTONADIONE 10MG/ML AMP SUBCUT SCH (09:37)
[2019-05-17 12:00] VITALS: BP 105/77
[2019-05-17] MEDS: CEFTRIAXONE 2 G in DEXTROSE 5% WATER 50 ML IV SCH (12:33)
[2019-05-17 16:00] VITALS: BP 112/75
[2019-05-17 16:52] VITALS: BP 105/77
[2019-05-17] MEDS ORDERED: CARVEDILOL 3.125 MG TABLET PO SCH (21:00)
== END 2019-05-17 18:50 | DRG 201 ==
LOC: ER 20:03 → ENRESERV 05-11 01:23 → 6WST 05-11 06:27
PROVIDERS: ADMIT Internal Medicine; ATTEND Internal Medicine
PROC: 30233R1 Transfusion of Nonautologous Platelets into Peripheral Vein, Percutaneous Approach (ICD-10-PCS; 2019-05-13)
PROC: 0W9G3ZZ Drainage of Peritoneal Cavity, Percutaneous Approach (ICD-10-PCS; principal; 2019-05-14)
DX: I48.20 Chronic atrial fibrillation, unspecified (principal); N17.9 Acute kidney failure, unspecified; K65.2 Spontaneous bacterial peritonitis; J96.11 Chronic respiratory failure with hypoxia; D68.9 Coagulation defect, unspecified; D69.6 Thrombocytopenia, unspecified; E11.22 Type 2 diabetes mellitus with diabetic chronic kidney disease; I42.9 Cardiomyopathy, unspecified; E87.0 Hyperosmolality and hypernatremia; E11.649 Type 2 diabetes mellitus with hypoglycemia without coma; K72.90 Hepatic failure, unspecified without coma; E86.0 Dehydration; I13.0 Hypertensive heart and chronic kidney disease with heart failure and stage 1 through stage 4 chronic kidney disease, or unspecified chronic kidney disease; I85.00 Esophageal varices without bleeding; R13.12 Dysphagia, oropharyngeal phase; N18.2 Chronic kidney disease, stage 2 (mild); F03.90 Unspecified dementia, unspecified severity, without behavioral disturbance, psychotic disturbance, mood disturbance, and anxiety; E87.5 Hyperkalemia; I50.22 Chronic systolic (congestive) heart failure; I95.9 Hypotension, unspecified; K76.6 Portal hypertension; B19.20 Unspecified viral hepatitis C without hepatic coma; R18.8 Other ascites; D53.9 Nutritional anemia, unspecified; E78.00 Pure hypercholesterolemia, unspecified; K74.60 Unspecified cirrhosis of liver; K31.9 Disease of stomach and duodenum, unspecified; K44.9 Diaphragmatic hernia without obstruction or gangrene; J44.9 Chronic obstructive pulmonary disease, unspecified; Z86.73 Personal history of transient ischemic attack (TIA), and cerebral infarction without residual deficits; Z93.1 Gastrostomy status
CPT/HCPCS: 36415; 36600; 49083; 71045; 74018; 76705; 80048; 80076; 82040; 82140; 82375; 82607; 82728; 82746; 82805; 82962; 83540; 83550; 83735; 84100; 84484; 85044; 86850; 86900; 86945; 87077; 87106; 87186; 93005; 94640; 96374; 99285; C1893; J0696; J1160; J1630; J2060; J2930; J3430; J3490; J7030; J7060; J7611; J7620; J7626; P9034; A4315

== ENCOUNTER 2019-05-23 09:55 | Inpatient (IN) | payer MEDICARE, MEDICAID ==
[~2019-05-23] VITALS: Ht 157.5 cm; Wt 54.9 kg
[2019-05-23] MEDS ORDERED: METHYLPREDNISOLONE SOD SUCC 125 MG/2 ML VIAL IV STA (10:13)
[2019-05-23] MEDS ORDERED: ALBUTEROL (0.083%) 2.5MG/3ML NEB HHN STA (10:13)
[2019-05-23] MEDS ORDERED: IPRATROPIUM BROMIDE (0.02%) 0.5MG/2.5ML NEB HHN STA (10:13)
[2019-05-23] MEDS ORDERED: VANCOMYCIN 1 G PREMIX 200 ML IV ONE (10:15)
[2019-05-23] MEDS ORDERED: SODIUM CHLORIDE 0.9% 1000ML BAG (SEPSIS BOLUS) IV ONE (10:15)
[2019-05-23] MEDS ORDERED: PIPERACILLIN/TAZ 3.375G PREMIX 50 ML IV ONE (10:15)
[2019-05-23] MEDS ORDERED: ASPIRIN 81MG TABLET PO ONE (10:15)
[2019-05-23 11:05] LABS: CLARITY URINE CLOUDY (CLEAR); COLOR URINE DARK YELLOW (YELLOW); KETONES URINE NEGATIVE (NEGATIVE); LEUKOCYTE ESTERASE URINE 2+ (NEGATIVE); NITRITE URINE NEGATIVE (NEGATIVE); OCCULT BLOOD URINE 3+ (NEGATIVE); PH URINE 5.5 (4.5-8.0); PROTEIN URINE 2+ (NEGATIVE); SPECIFIC GRAVITY URINE 1.022 (1.005-1.030)
[2019-05-23 12:01] LABS: HEMATOCRIT. 29.1 % (36.0-48.0); HEMOGLOBIN. 9.3 g/dL (12.0-16.0); MEAN CORPUSCULAR HEMOGLOBIN 35.6 pg (28.0-32.0); MEAN CORPUSCULAR VOLUME 111.6 fL (81.0-99.0); MEAN PLATELET VOLUME 10.1 fl (7.4-10.4); PLATELET 109 x1000/uL (130-400); RED BLOOD CELL COUNT 2.61 mill/uL (4.2-5.4); RED CELL DISTRIBUTION WIDTH 17.9 % (11.6-14.6)
[2019-05-23 12:10] LABS: CHLORIDE 104 mEq/L (98-107)
[2019-05-23 12:14] LABS: BG BASE EXCESS 0.3 mmol/L (-2.0-2.0); BG BILEVEL POS AIRWAY PRESSURE 15/5; BG CARBOXYHEMOGLOBIN 0.8 % (0.5-1.5); BG DEOXYHEMOGLOBIN 4.7 % (0.0-5.0); BG HCO3 ACT 28.5 mmol/L (22.0-26.0); BG METHEMOGLOBIN 0.3 % (0.0-1.5); BG OXYGEN SATURATION 95.2 % (92.0-98.5); BG OXYHEMOGLOBIN 94.2 % (94.0-97.0); BG PCO2 67.6 mmHg (35.0-45.0); BG PH 7.243 (7.350-7.450); BG PO2 91.4 mmHg (75.0-100.0); BG SAMPLE SITE RIGHT RADIAL; BG TOTAL HEMOGLOBIN 9.8 g/dL (12.0-18.0); BG VENT MODE MASK - BIPAP; BG VENT RATE 12 set
[2019-05-23] MEDS ORDERED: SODIUM BICARBONATE 8.4% 1 MEQ/ML 50ML SYR IV ONE ×2 (12:30→13:56)
[2019-05-23 13:03] LABS: BG BASE EXCESS -0.2 mmol/L (-2.0-2.0); BG BILEVEL POS AIRWAY PRESSURE ST=15/5; BG CARBOXYHEMOGLOBIN 0.5 % (0.5-1.5); BG FRACTION INSPIRED OXYGEN 100; BG HCO3 ACT 26.7 mmol/L (22.0-26.0); BG METHEMOGLOBIN 0.3 % (0.0-1.5); BG OXYHEMOGLOBIN 99.2 % (94.0-97.0); BG PCO2 54.8 mmHg (35.0-45.0); BG PH 7.305 (7.350-7.450); BG PO2 464.5 mmHg (75.0-100.0); BG PRESSURE SUPPORT 10; BG SAMPLE SITE LEFT RADIAL; BG TOTAL HEMOGLOBIN 9.7 g/dL (12.0-18.0); BG VENT MODE MASK - BIPAP; BG VENT RATE 12 set
[2019-05-23 13:15] LABS: PLATELET ESTIMATE SLIGHTLY DECREASED
[2019-05-23] MEDS ORDERED: IPRATROPIUM/ALBUTEROL 0.5-3(2.5)MG/3ML NEB HHN PRN (19:15)
[2019-05-23] MEDS ORDERED: MAGNESIUM/ALUMINUM HYDROXIDE/SIMETHICONE 30ML UDC PO PRN (19:15)
[2019-05-23] MEDS ORDERED: ACETAMINOPHEN 325MG TABLET GT PRN (19:15)
[2019-05-23] MEDS ORDERED: DIPHENHYDRAMINE 50MG/ML VIAL IV PRN (19:15)
[2019-05-23] MEDS ORDERED: ONDANSETRON HCL 4MG/2ML INJ IV PRN (19:15)
[2019-05-23] MEDS ORDERED: DEXTROSE 50% WATER 50ML SYRINGE IV PRN (19:15)
[2019-05-23 22:08] VITALS: BP 131/98
[2019-05-23 22:15] VITALS: BP 158/79
[2019-05-24] VITALS (12 sets, daily range): BP systolic 91–135; BP diastolic 23–87
[2019-05-24] MEDS ORDERED: LEVOFLOXACIN 500MG PREMIX 100 ML IV NR
[2019-05-24] MEDS: METHYLPREDNISOLONE SOD SUCC 40 MG/ML VIAL IV SCH ×2 (00:43→08:05)
[2019-05-24] MEDS: BLOOD SUGAR DIAGNOSTIC STRIP TEST SCH ×4 (00:44→18:00)
[2019-05-24] MEDS: SODIUM CHLORIDE 0.9% INJ 3ML FLUSH IVF SCH ×3 (00:45→23:03)
[2019-05-24] MEDS: IPRATROPIUM/ALBUTEROL 0.5-3(2.5)MG/3ML NEB HHN SCH ×4 (01:23→21:10)
[2019-05-24] MEDS: GUAIFENESIN 200MG/10ML SUGAR FREE UDC GT PRN ×2 (05:30→23:05)
[2019-05-24] MEDS: INSULIN LISPRO 100 UNITS/ML SUBCUT SCH ×4 (06:00→18:00)
[2019-05-24] MEDS ORDERED: OLAN5TAB3 PO (06:38)
[2019-05-24] MEDS ORDERED: FURO-151 MT (06:40)
[2019-05-24] MEDS ORDERED: COR12 MT (06:40)
[2019-05-24] MEDS: FAMOTIDINE 20MG TABLET PO SCH (08:05)
[2019-05-24] MEDS: ENOXAPARIN 40MG/0.4ML SYR SUBCUT SCH (08:06)
[2019-05-24] MEDS ORDERED: LORAZEPAM 2MG/ML CPJ IM PRN (08:30)
[2019-05-24] MEDS: CARVEDILOL 6.25 MG TABLET GT SCH ×2 (08:31→22:12)
[2019-05-24] MEDS: DILTIAZEM HCL 30MG TABLET GT SCH ×3 (08:37→22:00)
[2019-05-24] MEDS ORDERED: OLANZAPINE 5MG TABLET PO SCH (09:00)
[2019-05-24 13:48] LABS: BG BASE EXCESS -0.7 mmol/L (-2.0-2.0); BG CARBOXYHEMOGLOBIN 0.6 % (0.5-1.5); BG DEOXYHEMOGLOBIN 1.5 % (0.0-5.0); BG FRACTION INSPIRED OXYGEN 36; BG HCO3 ACT 24.1 mmol/L (22.0-26.0); BG METHEMOGLOBIN 0.3 % (0.0-1.5); BG OXYGEN SATURATION 98.5 % (92.0-98.5); BG OXYHEMOGLOBIN 97.6 % (94.0-97.0); BG PCO2 40.2 mmHg (35.0-45.0); BG PH 7.395 (7.350-7.450); BG PO2 120.7 mmHg (75.0-100.0); BG SAMPLE SITE RIGHT RADIAL; BG TOTAL HEMOGLOBIN 9.3 g/dL (12.0-18.0); BG VENT MODE NASAL CANNULA
[2019-05-24] MEDS ORDERED: DILTIAZEM HCL 30MG TABLET GT SCH (14:00)
[2019-05-24] MEDS: FUROSEMIDE 40MG TABLET PO SCH (14:19)
[2019-05-24] MEDS: BUDESONIDE 0.5MG/2ML NEB HHN SCH (21:10)
[2019-05-24] MEDS: LEVOFLOXACIN 250MG PREMIX 50 ML IV SCH (23:04)
[2019-05-25] VITALS (14 sets, daily range): BP systolic 83–173; BP diastolic 41–98
[2019-05-25] MEDS: IPRATROPIUM/ALBUTEROL 0.5-3(2.5)MG/3ML NEB HHN SCH ×4 (02:08→20:50)
[2019-05-25] MEDS: INSULIN LISPRO 100 UNITS/ML SUBCUT SCH ×4 (06:00→18:00)
[2019-05-25] MEDS: DILTIAZEM HCL 30MG TABLET GT SCH ×3 (06:00→23:56)
[2019-05-25] MEDS: SODIUM CHLORIDE 0.9% INJ 3ML FLUSH IVF SCH ×3 (06:28→20:46)
[2019-05-25] MEDS: BLOOD SUGAR DIAGNOSTIC STRIP TEST SCH ×4 (06:50→17:33)
[2019-05-25] MEDS: BUDESONIDE 0.5MG/2ML NEB HHN SCH ×2 (07:47→20:50)
[2019-05-25] MEDS: CARVEDILOL 6.25 MG TABLET GT SCH ×3 (09:00→21:00)
[2019-05-25] MEDS: FAMOTIDINE 20MG TABLET PO SCH (09:16)
[2019-05-25] MEDS: FUROSEMIDE 40MG TABLET PO SCH (09:16)
[2019-05-25] MEDS: ENOXAPARIN 40MG/0.4ML SYR SUBCUT SCH (09:16)
[2019-05-25 16:47] LABS: HEMATOCRIT. 25.3 % (36.0-48.0); HEMOGLOBIN. 8.1 g/dL (12.0-16.0); MEAN CORPUSCULAR HEMOGLOBIN 35.5 pg (28.0-32.0); MEAN CORPUSCULAR VOLUME 111.1 fL (81.0-99.0); MEAN PLATELET VOLUME 9.7 fl (7.4-10.4); PLATELET 121 x1000/uL (130-400); RED BLOOD CELL COUNT 2.28 mill/uL (4.2-5.4); RED CELL DISTRIBUTION WIDTH 18.6 % (11.6-14.6)
[2019-05-25 17:43] LABS: NUCLEATED RED BLOOD CELLS 1 /100 WBC
[2019-05-25 17:44] LABS: PLATELET ESTIMATE SLIGHTLY DECREASED
[2019-05-25] MEDS ORDERED: SODIUM POLYSTYRENE SULFONATE 15 G/60 ML BOT GT NR (20:00)
[2019-05-25] MEDS: LEVOFLOXACIN 250MG PREMIX 50 ML IV SCH (23:56)
[2019-05-26] VITALS (12 sets, daily range): BP systolic 88–122; BP diastolic 48–73
[2019-05-26] MEDS: IPRATROPIUM/ALBUTEROL 0.5-3(2.5)MG/3ML NEB HHN SCH ×2 (01:02→08:53)
[2019-05-26] MEDS: INSULIN LISPRO 100 UNITS/ML SUBCUT SCH ×4 (06:00→17:05)
[2019-05-26] MEDS: DILTIAZEM HCL 30MG TABLET GT SCH ×3 (06:00→22:00)
[2019-05-26] MEDS: BLOOD SUGAR DIAGNOSTIC STRIP TEST SCH ×4 (06:41→17:04)
[2019-05-26] MEDS: SODIUM CHLORIDE 0.9% INJ 3ML FLUSH IVF SCH ×3 (06:41→22:01)
[2019-05-26] MEDS: BUDESONIDE 0.5MG/2ML NEB HHN SCH (08:53)
[2019-05-26] MEDS: CARVEDILOL 6.25 MG TABLET GT SCH ×2 (09:48→21:00)
[2019-05-26] MEDS: FAMOTIDINE 20MG TABLET PO SCH (09:49)
[2019-05-26] MEDS: ENOXAPARIN 40MG/0.4ML SYR SUBCUT SCH (09:49)
[2019-05-26 18:29] LABS: HEMATOCRIT. 25.6 % (36.0-48.0); HEMOGLOBIN. 8.4 g/dL (12.0-16.0); MEAN CORPUSCULAR HEMOGLOBIN 35.8 pg (28.0-32.0); MEAN CORPUSCULAR VOLUME 108.7 fL (81.0-99.0); PLATELET 130 x1000/uL (130-400); RED BLOOD CELL COUNT 2.35 mill/uL (4.2-5.4); RED CELL DISTRIBUTION WIDTH 19.4 % (11.6-14.6)
[2019-05-26 19:40] LABS: PLATELET ESTIMATE NORMAL
[2019-05-27] VITALS (13 sets, daily range): BP systolic 90–154; BP diastolic 41–105
[2019-05-27] MEDS: LEVOFLOXACIN 250MG PREMIX 50 ML IV SCH (00:21)
[2019-05-27] MEDS: BLOOD SUGAR DIAGNOSTIC STRIP TEST SCH ×3 (00:21→12:33)
[2019-05-27] MEDS: IPRATROPIUM/ALBUTEROL 0.5-3(2.5)MG/3ML NEB HHN SCH ×2 (01:47→09:20)
[2019-05-27] MEDS: SODIUM CHLORIDE 0.9% INJ 3ML FLUSH IVF SCH ×2 (05:51→14:37)
[2019-05-27] MEDS: INSULIN LISPRO 100 UNITS/ML SUBCUT SCH ×3 (06:00→12:00)
[2019-05-27] MEDS: ENOXAPARIN 40MG/0.4ML SYR SUBCUT SCH (08:39)
[2019-05-27] MEDS: FAMOTIDINE 20MG TABLET PO SCH (08:39)
[2019-05-27] MEDS: CARVEDILOL 6.25 MG TABLET GT SCH ×2 (08:39→15:10)
[2019-05-27] MEDS ORDERED: PREDNISONE 20MG TABLET PO SCH (09:00)
[2019-05-27] MEDS: DILTIAZEM HCL 30MG TABLET GT SCH ×2 (14:00→15:11)
[2019-05-27] MEDS ORDERED: FUROSEMIDE 40MG/4ML VIAL IVP SCH (15:00)
== END 2019-05-27 18:05 | DRG 720 ==
LOC: ER 09:55 → EDBEDREQ 11:49 → EDBEDREQTM 11:49 → EDBEDREQSVC 11:49 → 5EST 12:51 → EDBEDREQ 13:15 → EDBEDREQTM 13:15 → ENRESERV 20:04 → 5EST 05-25 19:00
PROVIDERS: ADMIT Internal Medicine; ATTEND Internal Medicine
PROC: 5A09357 Assistance with Respiratory Ventilation, Less than 24 Consecutive Hours, Continuous Positive Airway Pressure (ICD-10-PCS; principal; 2019-05-23)
DX: A41.50 Gram-negative sepsis, unspecified (principal); J96.00 Acute respiratory failure, unspecified whether with hypoxia or hypercapnia; E43 Unspecified severe protein-calorie malnutrition; I50.23 Acute on chronic systolic (congestive) heart failure; N17.9 Acute kidney failure, unspecified; E87.2 Acidosis; K76.6 Portal hypertension; E87.5 Hyperkalemia; R13.10 Dysphagia, unspecified; I48.20 Chronic atrial fibrillation, unspecified; I42.9 Cardiomyopathy, unspecified; J44.1 Chronic obstructive pulmonary disease with (acute) exacerbation; N39.0 Urinary tract infection, site not specified; E11.9 Type 2 diabetes mellitus without complications; K74.60 Unspecified cirrhosis of liver; I11.0 Hypertensive heart disease with heart failure; D64.9 Anemia, unspecified; E78.00 Pure hypercholesterolemia, unspecified; F03.90 Unspecified dementia, unspecified severity, without behavioral disturbance, psychotic disturbance, mood disturbance, and anxiety; I07.1 Rheumatic tricuspid insufficiency; Z78.1 Physical restraint status; Z86.73 Personal history of transient ischemic attack (TIA), and cerebral infarction without residual deficits; Z93.1 Gastrostomy status; Z68.22 Body mass index [BMI] 22.0-22.9, adult
CPT/HCPCS: 36415; 36600; 71045; 80048; 81003; 82140; 82375; 82805; 82962; 83605; 83880; 84134; 84145; 84484; 87077; 87186; 93005; 93970; 94644; 94660; 99291; A6261; C1893; J1650; J1940; J1956; J2543; J2920; J2930; J3370; J3490; J7030; J7512; J7611; J7620; J7626